=== PATIENT | female | born 1960 | race African-American/Black ===

== ENCOUNTER 2024-06-11 17:19 | Inpatient (IN) | payer MEDICARE, OTHER ==
[~2024-06-11] VITALS: Ht 162.6 cm; Wt 77.6 kg
[~2024-06-11 17:19] MED LIST: APIX5TAB PO; BENZ-247 PO; CHOL100062 PO; DIVA-112 PO; ESCI20TA87 PO; FLUT100B IH; FURO20TA5 PO; METO-408 PO; MULT-1203 PO; OMEG-237 PO; POTA-92 PO; SACU1TAB PO
[2024-06-11] MEDS ORDERED: 0.9% SODIUM CHLORIDE 10 ML SYRINGE IVP PRN (17:30)
[2024-06-11] MEDS: SODIUM CHLORIDE 0.9% 1,400 ML IV ONE (17:44)
[2024-06-11] MEDS: AZTREONAM 1 GM in DEXTROSE 5%-WATER 50 ML IV ONE (18:13)
[2024-06-11 18:30] LABS: GLUCOMETER DEV NAME(LOC) AHU.; GLUCOSE,POINT OF CARE 85 MG/DL (70-110)
[2024-06-11 18:59] LABS: ANION GAP 8 mmol/L (8-16); CARBON DIOXIDE 25 mmol/L (22-29); CHLORIDE 99 mmol/L (98-107); GLOMERULAR FILTR. RATE CALC 40 mL/min (>60); GLUCOSE,RANDOM 110 mg/dL (70-110); POTASSIUM 4.7 mmol/L (3.5-5.1); SODIUM SERUM 132 mmol/L (136-145); UREA NITROGEN, BLOOD 32 mg/dL (7-18)
[2024-06-11 19:06] LABS: BASOPHILS % (AUTO) 0.6 % (0.0-2.0); EOSINOPHILS % (AUTO) 0.2 % (1.0-6.0); HEMOGLOBIN 8.6 g/dL (12.0-16.0); LYMPHOCYTES # (AUTO) 2.2 K/uL (1.0-4.8); LYMPHOCYTES % (AUTO) 27.6 % (22.0-44.0); MEAN CORPUSCULAR HEMOGLOBIN 27.9 pg (26.0-34.0); MEAN CORPUSCULAR HGB CONC 31.9 G/dL (31.0-37.0); MEAN CORPUSCULAR VOLUME 87 fL (80-100); MONOCYTES # (AUTO) 1.2 K/uL (0.1-1.0); MONOCYTES % (AUTO) 15.4 % (2.0-9.0); NEUTROPHILS # (AUTO) 4.5 K/uL (1.8-7.7); NEUTROPHILS % (AUTO) 56.2 % (40.0-70.0); RED BLOOD CELL COUNT(AUTO) 3.09 MIL/uL (4.00-5.20); RED CELL DISTRIBUTION WIDTH 16.7 % (11.5-14.5); WHITE BLOOD COUNT (AUTO) 8.1 K/uL (4.5-11.0)
[2024-06-11 19:07] LABS: PLATELET COUNT (AUTO) 140 K/uL (150-450); TROPONIN I-HIGH SENSITIVITY 7 ng/L (<51)
[2024-06-11] MEDS: *CLINICAL-LEVOFLOXACIN IVPB DOSING CLINICAL ONE (19:57)
[2024-06-11] MEDS ORDERED: ONDANSETRON HCL 4 MG/2 ML VIAL IVP PRN (20:00)
[2024-06-11] MEDS ORDERED: ACETAMINOPHEN 1000 MG/ISO-OSM 100 ML IV ONE (20:04)
[2024-06-11] MEDS: ACETAMINOPHEN 1000 MG/ISO-OSM 100 ML IV ONE (20:09)
[2024-06-11] MEDS: FUROSEMIDE 20 MG/2 ML VIAL IVP ONE (20:09)
[2024-06-11 20:10] LABS: APPEARANCE,URINE CLEAR (CLEAR); BILIRUBIN,URINE NEGATIVE (NEGATIVE); COLOR,URINE YELLOW (YELLOW); GLUCOSE, URINE (UA) NEGATIVE (NEGATIVE); KETONES,URINE NEGATIVE (NEGATIVE); LEUKOCYTE ESTERASE ,URINE SMALL (NEGATIVE); NITRATE,URINE NEGATIVE (NEGATIVE); OCCULT BLOOD,URINE NEGATIVE (NEGATIVE); PH,URINE 5.5 (5.0-8.0); PROTEIN,URINE 30-70 mg/dL (NEGATIVE); SPECIFIC GRAVITIY, URINE 1.014 (1.003-1.030); UROBILINOGEN,URINE <=1.0 mg/dL (<=1.0)
[2024-06-11 20:11] LABS: % IRON SATURATION 9.3 % (22-44)
[2024-06-11] MEDS: DOCUSATE SODIUM 100 MG CAPSULE PO SCH (20:17)
[2024-06-11 20:18] LABS: COVID AG,FIA SOURCE NASAL SWAB
[2024-06-11 20:33] LABS: BACTERIA,URINE Few /HPF (None Seen); RBC,URINE 0-2 /HPF (0-2); SQUAMOUS EPITHELIAL CELL,UR Few /LPF (None Seen)
[2024-06-11 20:45] LABS: INFLUENZA TYPE A NEGATIVE FOR TYPE A (NEGATIVE); INFLUENZA TYPE B NEGATIVE FOR TYPE B (NEGATIVE); SARS-COV2 (COVID) ANTIGEN,FIA Negative (Negative)
[2024-06-11] MEDS ORDERED: NOREPINEPHRINE 8 MG/0.9 % NACL 250 ML IV PRN ×2 (22:30→22:45)
[2024-06-11] MEDS: *CLINICAL-CEFEPIME DOSING CLINICAL ONE (22:35)
[2024-06-11] MEDS: NOREPINEPHRINE 8 MG/0.9 % NACL 250 ML IV PRN (22:41)
[2024-06-11] MEDS: APIXABAN 5 MG TABLET PO SCH (23:16)
[2024-06-12] VITALS: BP 122/90; PULSE 77; RESP 14; TEMP 98.3; O2SAT 97
[2024-06-12] MEDS ORDERED: HEPARIN SODIUM,PORCINE 5,000 UNITS/ML VIAL SQ SCH
[2024-06-12] MEDS: ACETAMINOPHEN 325 MG TABLET PO PRN (03:31)
[2024-06-12 04:00] VITALS: BP 96/55; PULSE 85; RESP 12; TEMP 99.5; O2SAT 98
[2024-06-12] MEDS ORDERED: SODIUM CHLORIDE 0.9% 250 ML IV ONE ×2 (04:16→11:58)
[2024-06-12] MEDS: ACETAMINOPHEN 500 MG/ISO-OSM 50 ML IV ONE (04:17)
[2024-06-12 05:40] LABS: BASOPHILS % (AUTO) 0.5 % (0.0-2.0); EOSINOPHILS % (AUTO) 0.2 % (1.0-6.0); HEMATOCRIT 25.5 % (36-46); HEMOGLOBIN 8.3 g/dL (12.0-16.0); LYMPHOCYTES # (AUTO) 2.1 K/uL (1.0-4.8); LYMPHOCYTES % (AUTO) 28.2 % (22.0-44.0); MEAN CORPUSCULAR HEMOGLOBIN 28.2 pg (26.0-34.0); MEAN CORPUSCULAR HGB CONC 32.6 G/dL (31.0-37.0); MEAN CORPUSCULAR VOLUME 86 fL (80-100); MONOCYTES % (AUTO) 13.3 % (2.0-9.0); NEUTROPHILS # (AUTO) 4.3 K/uL (1.8-7.7); NEUTROPHILS % (AUTO) 57.8 % (40.0-70.0); PLATELET COUNT (AUTO) 119 K/uL (150-450); RED BLOOD CELL COUNT(AUTO) 2.95 MIL/uL (4.00-5.20); RED CELL DISTRIBUTION WIDTH 16.8 % (11.5-14.5); WHITE BLOOD COUNT (AUTO) 7.4 K/uL (4.5-11.0)
[2024-06-12] MEDS: CEFEPIME HCL 2 GM in DEXTROSE 5%-WATER 50 ML IV SCH (05:47)
[2024-06-12 05:56] LABS: CREATININE 1.25 mg/dL (0.60-1.30); POTASSIUM 4.7 mmol/L (3.5-5.1)
[2024-06-12] MEDS ORDERED: LEVOFLOXACIN 750 MG/D5% WATER 150 ML IV SCH (06:00)
[2024-06-12 08:00] VITALS: BP 91/45; PULSE 76; RESP 16; TEMP 99.3; O2SAT 99
[2024-06-12] MEDS ORDERED: ACETAMINOPHEN 500 MG/ISO-OSM 50 ML IV SCH (11:40)
[2024-06-12] MEDS ORDERED: DEXTROSE 5%-0.45% SODIUM CHL 1,000 ML IV ONE (11:46)
[2024-06-12] MEDS: DEXTROSE 5%-0.45% SODIUM CHL 1,000 ML IV ONE (11:54)
[2024-06-12 12:00] VITALS: BP 107/59; PULSE 90; RESP 19; TEMP 102.8; O2SAT 98
[2024-06-12] MEDS: ACETAMINOPHEN 500 MG/ISO-OSM 50 ML IV PRN (12:06)
[2024-06-12] MEDS: HEPARIN SODIUM,PORCINE 5,000 UNITS/ML VIAL SQ SCH (15:20)
[2024-06-12 16:00] VITALS: BP 138/41; PULSE 101; PULSE 88; RESP 15; TEMP 101.6; O2SAT 96
[2024-06-12 20:00] VITALS: BP 100/42; PULSE 70; PULSE 80; RESP 14; TEMP 99.7; O2SAT 100
[2024-06-12] MEDS: MAGNESIUM SULFATE 1 GM in DEXTROSE 5%-WATER 50 ML IV ONE (20:13)
[2024-06-13] VITALS (8 sets, daily range): BP systolic 96–128; BP diastolic 47–98; PULSE 82–98; RESP 12–23; TEMP 98.3–99.8; O2SAT 98–100
[2024-06-13 05:53] LABS: BASOPHILS % (AUTO) 0.8 % (0.0-2.0); HEMATOCRIT 24.7 % (36-46); HEMOGLOBIN 7.9 g/dL (12.0-16.0); LYMPHOCYTES # (AUTO) 1.8 K/uL (1.0-4.8); LYMPHOCYTES % (AUTO) 35.8 % (22.0-44.0); MEAN CORPUSCULAR HEMOGLOBIN 27.9 pg (26.0-34.0); MEAN CORPUSCULAR HGB CONC 31.9 G/dL (31.0-37.0); MEAN CORPUSCULAR VOLUME 87 fL (80-100); MONOCYTES # (AUTO) 0.6 K/uL (0.1-1.0); MONOCYTES % (AUTO) 11.7 % (2.0-9.0); NEUTROPHILS # (AUTO) 2.5 K/uL (1.8-7.7); NEUTROPHILS % (AUTO) 50.7 % (40.0-70.0); PLATELET COUNT (AUTO) 96 K/uL (150-450); RED BLOOD CELL COUNT(AUTO) 2.83 MIL/uL (4.00-5.20); RED CELL DISTRIBUTION WIDTH 16.6 % (11.5-14.5); WHITE BLOOD COUNT (AUTO) 4.9 K/uL (4.5-11.0)
[2024-06-13 06:09] LABS: ANION GAP 6 mmol/L (8-16); CALCIUM, TOTAL 10.5 mg/dL (8.8-10.5); CARBON DIOXIDE 27 mmol/L (22-29); CHLORIDE 98 mmol/L (98-107); GLOMERULAR FILTR. RATE CALC > 60 mL/min (>60); GLUCOSE,RANDOM 78 mg/dL (70-110); POTASSIUM 4.1 mmol/L (3.5-5.1); SODIUM SERUM 131 mmol/L (136-145); UREA NITROGEN, BLOOD 20 mg/dL (7-18)
[2024-06-13 06:11] LABS: MAGNESIUM 1.8 mg/dL (1.80-2.40); PHOSPHORUS 2.5 mg/dL (2.5-4.9)
[2024-06-13] MEDS: DEXTROSE 5%-0.45% SODIUM CHL 1,000 ML IV SCH (09:52)
[2024-06-14] VITALS (7 sets, daily range): BP systolic 92–125; BP diastolic 48–70; PULSE 68–141; RESP 20–23; TEMP 98.4–101.5; O2SAT 95–100
[2024-06-14 06:31] LABS: EOSINOPHILS % (AUTO) 1.1 % (1.0-6.0); HEMATOCRIT 23.9 % (36-46); HEMOGLOBIN 7.7 g/dL (12.0-16.0); LYMPHOCYTES # (AUTO) 2.4 K/uL (1.0-4.8); LYMPHOCYTES % (AUTO) 43.4 % (22.0-44.0); MEAN CORPUSCULAR HEMOGLOBIN 27.7 pg (26.0-34.0); MEAN CORPUSCULAR VOLUME 87 fL (80-100); MONOCYTES # (AUTO) 0.8 K/uL (0.1-1.0); MONOCYTES % (AUTO) 14.9 % (2.0-9.0); NEUTROPHILS # (AUTO) 2.1 K/uL (1.8-7.7); NEUTROPHILS % (AUTO) 39.6 % (40.0-70.0); PLATELET COUNT (AUTO) 90 K/uL (150-450); RED BLOOD CELL COUNT(AUTO) 2.77 MIL/uL (4.00-5.20); RED CELL DISTRIBUTION WIDTH 16.8 % (11.5-14.5); WHITE BLOOD COUNT (AUTO) 5.4 K/uL (4.5-11.0)
[2024-06-14 07:30] LABS: CHLORIDE 103 mmol/L (98-107); CREATININE 0.77 mg/dL (0.60-1.30); GLOMERULAR FILTR. RATE CALC > 60 mL/min (>60); GLUCOSE,RANDOM 90 mg/dL (70-110); POTASSIUM 3.7 mmol/L (3.5-5.1); SODIUM SERUM 134 mmol/L (136-145); UREA NITROGEN, BLOOD 17 mg/dL (7-18)
[2024-06-14 07:35] LABS: ANION GAP 5 mmol/L (8-16); CARBON DIOXIDE 26 mmol/L (22-29)
[2024-06-14] MEDS: CEFEPIME HCL 2 GM in DEXTROSE 5%-WATER 50 ML IV SCH (13:59)
[2024-06-14] MEDS: SODIUM CHLORIDE 0.9% 250 ML IV ONE (20:46)
[2024-06-14 21:04] LABS: TROPONIN I-HIGH SENSITIVITY 4 ng/L (<51)
[2024-06-15 05:08] VITALS: BP 123/59; PULSE 86; RESP 16; TEMP 99.1; O2SAT 100
[2024-06-15 08:07] VITALS: BP 105/74; PULSE 90; RESP 18; TEMP 98.8; O2SAT 95
[2024-06-15 12:08] VITALS: BP 130/77; PULSE 91; RESP 18; TEMP 98.4; O2SAT 95
[2024-06-15 16:16] VITALS: BP 114/65; PULSE 91; RESP 18; TEMP 98.8; O2SAT 95
[2024-06-15 20:00] VITALS: BP 116/67; RESP 18; TEMP 98.6; O2SAT 98
[2024-06-15] MEDS: METOPROLOL TARTRATE 25 MG TABLET PO SCH (21:35)
[2024-06-16] VITALS (7 sets, daily range): BP systolic 100–151; BP diastolic 53–72; PULSE 77–111; RESP 18–19; TEMP 97.7–99.5; O2SAT 94–100
[2024-06-16 07:00] LABS: BASOPHILS % (AUTO) 0.9 % (0.0-2.0); EOSINOPHILS % (AUTO) 0.8 % (1.0-6.0); HEMOGLOBIN 7.8 g/dL (12.0-16.0); LYMPHOCYTES # (AUTO) 2.7 K/uL (1.0-4.8); LYMPHOCYTES % (AUTO) 49.4 % (22.0-44.0); MEAN CORPUSCULAR HEMOGLOBIN 27.7 pg (26.0-34.0); MEAN CORPUSCULAR HGB CONC 32.3 G/dL (31.0-37.0); MEAN CORPUSCULAR VOLUME 86 fL (80-100); MONOCYTES # (AUTO) 0.8 K/uL (0.1-1.0); MONOCYTES % (AUTO) 14.4 % (2.0-9.0); NEUTROPHILS # (AUTO) 1.9 K/uL (1.8-7.7); NEUTROPHILS % (AUTO) 34.5 % (40.0-70.0); PLATELET COUNT (AUTO) 125 K/uL (150-450); RED CELL DISTRIBUTION WIDTH 16.4 % (11.5-14.5); WHITE BLOOD COUNT (AUTO) 5.5 K/uL (4.5-11.0)
[2024-06-16 07:21] LABS: ANION GAP 8 mmol/L (8-16); CARBON DIOXIDE 24 mmol/L (22-29); CHLORIDE 100 mmol/L (98-107); CREATININE 0.91 mg/dL (0.60-1.30); GLOMERULAR FILTR. RATE CALC > 60 mL/min (>60); GLUCOSE,RANDOM 89 mg/dL (70-110); POTASSIUM 3.5 mmol/L (3.5-5.1); SODIUM SERUM 132 mmol/L (136-145); TROPONIN I-HIGH SENSITIVITY 4 ng/L (<51); UREA NITROGEN, BLOOD 15 mg/dL (7-18)
[2024-06-16] MEDS: AMIODARONE HCL 150 MG in DEXTROSE 5%-WATER 97 ML IV ONE (09:56)
[2024-06-16] MEDS: AMIODARONE HCL 360 MG in DEXTROSE 5%-WATER 242.8 ML IV ONE (10:10)
[2024-06-16] MEDS: AMIODARONE HCL 540 MG in DEXTROSE 5%-WATER 250 ML IV ONE (16:54)
[2024-06-16] MEDS: METOPROLOL TARTRATE 25 MG TABLET PO SCH (21:00)
[2024-06-17] VITALS (9 sets, daily range): BP systolic 112–130; BP diastolic 62–78; PULSE 74–88; RESP 18–22; TEMP 97.5–99.1; O2SAT 95–99
[2024-06-17] MEDS ORDERED: AMIODARONE HCL 750 MG in DEXTROSE 5%-WATER 485 ML IV SCH (09:20)
[2024-06-17] MEDS: AMIODARONE HCL 200 MG TABLET PO SCH (10:13)
[2024-06-17 14:07] LABS: BASOPHILS % (AUTO) 1.1 % (0.0-2.0); EOSINOPHILS % (AUTO) 0.5 % (1.0-6.0); HEMATOCRIT 25.3 % (36-46); HEMOGLOBIN 8.2 g/dL (12.0-16.0); LYMPHOCYTES % (AUTO) 38.8 % (22.0-44.0); MEAN CORPUSCULAR HEMOGLOBIN 27.6 pg (26.0-34.0); MEAN CORPUSCULAR HGB CONC 32.3 G/dL (31.0-37.0); MEAN CORPUSCULAR VOLUME 86 fL (80-100); MONOCYTES # (AUTO) 0.7 K/uL (0.1-1.0); MONOCYTES % (AUTO) 14.2 % (2.0-9.0); NEUTROPHILS # (AUTO) 2.3 K/uL (1.8-7.7); NEUTROPHILS % (AUTO) 45.4 % (40.0-70.0); PLATELET COUNT (AUTO) 138 K/uL (150-450); RED BLOOD CELL COUNT(AUTO) 2.96 MIL/uL (4.00-5.20); RED CELL DISTRIBUTION WIDTH 16.7 % (11.5-14.5); WHITE BLOOD COUNT (AUTO) 5.1 K/uL (4.5-11.0)
[2024-06-17 14:21] LABS: ANION GAP 9 mmol/L (8-16); CALCIUM, TOTAL 9.9 mg/dL (8.8-10.5); CARBON DIOXIDE 22 mmol/L (22-29); CHLORIDE 99 mmol/L (98-107); CREATININE 0.97 mg/dL (0.60-1.30); GLOMERULAR FILTR. RATE CALC > 60 mL/min (>60); GLUCOSE,RANDOM 87 mg/dL (70-110); POTASSIUM 3.8 mmol/L (3.5-5.1); SODIUM SERUM 130 mmol/L (136-145); UREA NITROGEN, BLOOD 18 mg/dL (7-18)
[2024-06-17] MEDS: IPRATROPIUM BROMIDE 0.5 MG/2.5 ML NEB SOLUTION NEB PRN (19:15)
[2024-06-17] MEDS: ALBUTEROL SULFATE 2.5 MG/0.5 ML NEB SOLUTION NEB PRN (19:16)
[2024-06-18] VITALS (7 sets, daily range): BP systolic 112–155; BP diastolic 64–83; PULSE 66–94; RESP 18–23; TEMP 97.5–98.8; O2SAT 95–100
[2024-06-18] MEDS: CEFEPIME HCL 2 GM in DEXTROSE 5%-WATER 50 ML IV SCH (03:10)
[2024-06-18] MEDS: LEVOTHYROXINE SODIUM 25 MCG TABLET PO SCH (06:40)
[2024-06-18 07:12] LABS: CANDIDA AURIS PCR,SURVEILLANCE Not Detected C(t) (Not Detectd)
[2024-06-18 08:00] LABS: BASOPHILS % (AUTO) 1.2 % (0.0-2.0); EOSINOPHILS % (AUTO) 0.5 % (1.0-6.0); HEMATOCRIT 25.1 % (36-46); HEMOGLOBIN 8.2 g/dL (12.0-16.0); LYMPHOCYTES # (AUTO) 2.1 K/uL (1.0-4.8); LYMPHOCYTES % (AUTO) 38.2 % (22.0-44.0); MEAN CORPUSCULAR HEMOGLOBIN 28.2 pg (26.0-34.0); MEAN CORPUSCULAR HGB CONC 32.8 G/dL (31.0-37.0); MEAN CORPUSCULAR VOLUME 86 fL (80-100); MONOCYTES % (AUTO) 18.7 % (2.0-9.0); NEUTROPHILS # (AUTO) 2.2 K/uL (1.8-7.7); NEUTROPHILS % (AUTO) 41.4 % (40.0-70.0); PLATELET COUNT (AUTO) 130 K/uL (150-450); RED BLOOD CELL COUNT(AUTO) 2.93 MIL/uL (4.00-5.20); RED CELL DISTRIBUTION WIDTH 16.8 % (11.5-14.5); WHITE BLOOD COUNT (AUTO) 5.4 K/uL (4.5-11.0)
[2024-06-18 08:03] LABS: ANION GAP 10 mmol/L (8-16); CALCIUM, TOTAL 9.8 mg/dL (8.8-10.5); CARBON DIOXIDE 20 mmol/L (22-29); CHLORIDE 101 mmol/L (98-107); CREATININE 0.95 mg/dL (0.60-1.30); GLOMERULAR FILTR. RATE CALC > 60 mL/min (>60); GLUCOSE,RANDOM 87 mg/dL (70-110); POTASSIUM 3.6 mmol/L (3.5-5.1); SODIUM SERUM 131 mmol/L (136-145); UREA NITROGEN, BLOOD 20 mg/dL (7-18)
[2024-06-18] MEDS ORDERED: SODIUM CHLORIDE 0.9% 100 ML ONE (16:44)
[2024-06-18] MEDS: AMIODARONE HCL 150 MG in DEXTROSE 5%-WATER 97 ML IV ONE (22:11)
[2024-06-18] MEDS: AMIODARONE HCL 360 MG in DEXTROSE 5%-WATER 242.8 ML IV ONE (22:23)
[2024-06-19] VITALS: BP 144/80; PULSE 92; PULSE 94; RESP 22; TEMP 98.6; O2SAT 97
[2024-06-19 04:00] VITALS: PULSE 96
[2024-06-19 04:50] VITALS: BP 133/103; PULSE 93; RESP 24; TEMP 98.7; O2SAT 94
[2024-06-19] MEDS: AMIODARONE HCL 540 MG in DEXTROSE 5%-WATER 250 ML IV ONE (04:50)
[2024-06-19 06:29] LABS: HEMATOCRIT 25.5 % (36-46); HEMOGLOBIN 8.3 g/dL (12.0-16.0); MEAN CORPUSCULAR HGB CONC 32.4 G/dL (31.0-37.0); MEAN CORPUSCULAR VOLUME 86 fL (80-100); PLATELET COUNT (AUTO) 118 K/uL (150-450); RED BLOOD CELL COUNT(AUTO) 2.95 MIL/uL (4.00-5.20); RED CELL DISTRIBUTION WIDTH 16.8 % (11.5-14.5); WHITE BLOOD COUNT (AUTO) 5.5 K/uL (4.5-11.0)
[2024-06-19 06:40] LABS: ANION GAP 10 mmol/L (8-16); CALCIUM, TOTAL 9.4 mg/dL (8.8-10.5); CARBON DIOXIDE 21 mmol/L (22-29); CHLORIDE 100 mmol/L (98-107); CREATININE 0.98 mg/dL (0.60-1.30); GLOMERULAR FILTR. RATE CALC > 60 mL/min (>60); GLUCOSE,RANDOM 98 mg/dL (70-110); POTASSIUM 3.3 mmol/L (3.5-5.1); SODIUM SERUM 131 mmol/L (136-145); UREA NITROGEN, BLOOD 21 mg/dL (7-18)
[2024-06-19] MEDS ORDERED: POTASSIUM CHL 10 MEQ/WATER 50 ML IV PRN (07:45)
[2024-06-19 08:00] VITALS: BP 138/91; PULSE 116; RESP 18; TEMP 98.6; O2SAT 95
[2024-06-19 08:45] LABS: BAND NEUTROPHILS % (MANUAL) 2 % (0-5); LYMPHOCYTES % (MANUAL) 38 % (22-44); MONOCYTES % (MANUAL) 3 % (2-9); RBC MORPHOLOGY COMMENT NORMAL RBC MORPH; SEGMENTED NEUTROPHILS % 57 % (40-70); TOTAL CELLS COUNTED 100
[2024-06-19] MEDS: METOPROLOL TARTRATE 25 MG TABLET PO SCH (10:01)
[2024-06-19] MEDS: POTASSIUM CHLORIDE 20 MEQ ER TABLET PO PRN (10:01)
[2024-06-19] MEDS: AMIODARONE HCL 200 MG TABLET PO SCH (10:01)
[2024-06-19 12:00] VITALS: BP 142/116; PULSE 81; RESP 19; TEMP 97.6; O2SAT 96
[2024-06-19] MEDS: CloNIDine HCL 0.1 MG TABLET PO ONE (14:10)
[2024-06-19] MEDS ORDERED: CloNIDine HCL 0.1 MG TABLET PO PRN (14:30)
[2024-06-19 16:00] VITALS: BP 129/81; PULSE 70; RESP 20; TEMP 98.2; O2SAT 95
[2024-06-19] MEDS ORDERED: AMIODARONE HCL 750 MG in DEXTROSE 5%-WATER 485 ML IV SCH (19:00)
[2024-06-19] MEDS ORDERED: METOPROLOL TARTRATE 25 MG TABLET PO SCH (21:00)
== END 2024-06-19 17:10 | DRG 871 ==
LOC: EMS 17:19 → EDH 19:53 → ICU 23:35 → 5N 06-14 15:55
PROVIDERS: ADMIT Internal Medicine; ATTEND Internal Medicine
PROC: 05H933Z Insertion of Infusion Device into Right Brachial Vein, Percutaneous Approach (ICD-10-PCS; principal; 2024-06-17)
DX: A41.9 Sepsis, unspecified organism (principal); I50.33 Acute on chronic diastolic (congestive) heart failure; J18.9 Pneumonia, unspecified organism; J96.01 Acute respiratory failure with hypoxia; R53.2 Functional quadriplegia; R65.21 Severe sepsis with septic shock; E87.1 Hypo-osmolality and hyponatremia; N39.0 Urinary tract infection, site not specified; G93.40 Encephalopathy, unspecified; C83.80 Other non-follicular lymphoma, unspecified site; N17.9 Acute kidney failure, unspecified; Z20.822 Contact with and (suspected) exposure to COVID-19; E83.52 Hypercalcemia; D63.8 Anemia in other chronic diseases classified elsewhere; F03.90 Unspecified dementia, unspecified severity, without behavioral disturbance, psychotic disturbance, mood disturbance, and anxiety; I36.1 Nonrheumatic tricuspid (valve) insufficiency; R62.7 Adult failure to thrive; D69.6 Thrombocytopenia, unspecified; I48.0 Paroxysmal atrial fibrillation; R62.50 Unspecified lack of expected normal physiological development in childhood; R94.6 Abnormal results of thyroid function studies; Z88.0 Allergy status to penicillin; Z79.01 Long term (current) use of anticoagulants; Z79.899 Other long term (current) drug therapy; Z68.29 Body mass index [BMI] 29.0-29.9, adult
CPT/HCPCS: 36245; 36569; 71045; 76937; 80048; 81001; 82962; 83540; 83550; 83605; 83735; 83880; 84100; 84132; 84145; 84439; 84443; 84484; 85025; 85045; 85610; 87040; 87081; 87086; 87481; 87804; 92526; 92610; 93005; 93971; 94640; 97163; 97165; 97530; 97535; 99291; J0131; J0282; J0692; J1644; J1940; J3475; J3490; J7050; J7060; 36415-L1; 36415-TC; J7613